=== PATIENT | male | born 1970 | race Native Hawaiian/Other Pacific Islander ===

== ENCOUNTER 2018-03-09 11:17 | Outpatient (CLI) | payer BC | END 2018-03-09 19:18 | disposition home or self-care (01) | LOC: CT 11:17 | DX: R31.9 Hematuria, unspecified (principal) ==

== ENCOUNTER 2019-02-02 08:14 | Outpatient (CLI) | payer BC ==
[2019-02-02 08:33] LABS: POTASSIUM 4.3 mmol/L (3.6-5.2)
== END 2019-02-02 20:02 | disposition home or self-care (01) ==
LOC: LABW 08:14
PROVIDERS: Internal Medicine
DX: E87.5 Hyperkalemia (principal)
CPT/HCPCS: 36415; 80048